=== PATIENT | female | born 1990 | race American Indian/Alaskan Native ===

== ENCOUNTER 2019-03-13 21:29 | Emergency (ER) | payer OTHER ==
[2019-03-13 22:00] LABS: Basophils % (Auto) 0.5 % (0.0-1.8); Eosinophils # (Auto) 0.2 K/mm3 (0.0-0.4); Eosinophils % (Auto) 1.9 % (0.0-4.3); Hematocrit 43.1 % (30.3-42.9); Hemoglobin 14.6 gm/dl (10.1-14.3); Lymphocytes # (Auto) 1.6 K/mm3 (1.2-5.4); Lymphocytes % (Auto) 15.5 % (13.4-35.0); Mean Corpuscular HGB Conc 34 % (30-34); Mean Corpuscular Volume 89 fl (79-97); Monocytes # (Auto) 0.7 K/mm3 (0.0-0.8); Monocytes % (Auto) 6.4 % (0.0-7.3); Platelet Count 278 K/mm3 (140-440); Red Blood Count 4.83 M/mm3 (3.65-5.03); Red Cell Distribution Width 13.2 % (13.2-15.2)
[2019-03-13 22:22] LABS: Alanine Aminotransferase 8 units/L (7-56); Albumin 4.8 g/dL (3.9-5); BUN/Creatinine Ratio 13; Blood Urea Nitrogen 9 mg/dL (7-17); Calcium 9.8 mg/dL (8.4-10.2); Hemolysis Index 8
[2019-03-13 22:51] LABS: Bilirubin,Urine NEG (Negative); Blood,Urine NEG (Negative); Color,Urine Amber (Yellow); Mucus,Urine 3+ /HPF; Urobilinogen,Urine < 2.0 mg/dL (<2.0)
[2019-03-13 22:53] LABS: Amphetamine Screen,Urine PRESUMPTIVE NEGATIVE; Benzodiazepines Screen,Urine PRESUMPTIVE NEGATIVE; Cocaine Screen,Urine PRESUMPTIVE NEGATIVE; Methadone Screen,Urine PRESUMPTIVE NEGATIVE; Opiate Screen,Urine PRESUMPTIVE NEGATIVE
[2019-03-13 23:22] LABS: Cannabinoid Screen,Urine PRESUMPTIVE POSITIVE
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
--- NOTE | 2019-03-14 13:21 | Consultation ---
History of Present Illness - Reason for Consult Consult date: 03/14/19 Reason for consult: Mental Health Evaluation Requesting physician: MARY LYNNE - Chief Complaint Chief complaint: "I took the pills to kill myself" - History of Present Psychiatric Illness 28 y.o. AA female who presented to the ER for overdosing on several Gabapentin pills. Today the patient was emotional during the assessment She stated that she intentional took the pills to kill herself. She stated that she is having issues with her mother and boyfriend. Also, she had a miscarriage and her grandmother recently . She stated that she wanted everything to go away yesterday, so she decided to take the pills. She acknowledged a previous suicide attempt in the past by overdosing. She stated that she was placed at a mental health facility because of her actions. She continue to endorse SI's. She denies HIs' and AVH's. She denies erratic sleep and a poor appetite. She denies alcohol consumption (etoh), but acknowledge marijuana use. Medications and Allergies Allergies Allergy/AdvReac Type Severity Reaction Status Date / Time tomato Allergy Unknown Verified 03/13/19 22:38 Home Medications Medication Instructions Recorded Confirmed Last Taken Type No Known Home Medications [No 03/14/19 03/14/19 Unknown History Reported Home Medications] Past psychiatric history - Past Medical History Past Medical History: other (Recent miscarriage ) Past Surgical History: No surgical history - past Psychiatric treatment and history psychiatric treatment history: Several inpatient psy settings in the past. Denies a fam psy hx. - Social History Social history: lives with family Mental Status Exam - Vital signs Last Vital Signs Temp 99.1 F 03/14/19 10:09 Pulse 87 03/14/19 10:09 Resp 18 03/14/19 10:09 BP 115/64 03/14/19 10:09 Pulse Ox 100 03/14/19 10:09 - Exam Narrative exam: MSE: Appearance: in hospital attire Behavior: regular eye contact Speech: regular rate and tone Mood: emotional Affect: congruent to mood Thought Process: circumstantial Thought Content: denies HI's and AVH's Motor Activity: sitting up in bed Cognition: A/O x3 Insight: fair Judgment: poor Results Result Diagrams: 03/13/19 21:48 03/13/19 21:48 Abnormal lab results 03/13/19 03/13/1903/13/19 Range/Units 21:48 21:48 21:48 Hgb 14.6 H (10.1-14.3) gm/dl Hct 43.1 H (30.3-42.9) % Seg Neutrophils % 75.7 H (40.0-70.0) % Seg Neutrophils # 8.0 H (1.8-7.7) K/mm3 HCG, Quant (0-4) mIU/mL Salicylates < 0.3 L (2.8-20.0) mg/dL Acetaminophen < 5.0 L (10.0-30.0) ug/mL 03/13/19 Range/Units 22:38 Hgb (10.1-14.3) gm/dl Hct (30.3-42.9) % Seg Neutrophils % (40.0-70.0) % Seg Neutrophils # (1.8-7.7) K/mm3 HCG, Quant 20.55 H (0-4) mIU/mL Salicylates (2.8-20.0) mg/dL Acetaminophen (10.0-30.0) ug/mL All other labs normal. Assessment and Plan Assessment and plan: Impression: MDD, Severe Type. Cannabis Use DO. Intentional overdose. Today the patient was emotional during the assessment. The patient is impulsive. DDx: Substance Induced Mood DO Recommendation/Plan: Continue 1013. Discussed risks/benefits of SSRI's with the patient, she prefer talk therapy at this time. Dispo: The patient was referred to inpatient psy services. Will staff with Dr Letty Bashir.
--- NOTE | 2019-03-15 11:13 | Progress Note ---
Subjective - Reason for Consult Consult date: 03/15/19 Reason for consult: Psychiatric Follow-up Evaluation - Chief Complaint Chief complaint: "I'm good." Patient is a 28 y.o. AA female who presented to the ER for overdosing on several Gabapentin pills. Today the patient is calm and cooperative during the assessment. She reports excessive sleep and appetite fluctuations. Patient verbalizes multiple stressors. She continues to endorses depressed mood and anxiety. She rates her depression 7/10, with 10 being the worse. She denies SI/HI's, A/VH's, and delusions. Mental Status Exam - Vital signs Last Vital Signs Temp 98 F 03/15/19 08:05 Pulse 89 03/15/19 08:05 Resp 18 03/15/19 08:05 BP 118/72 03/15/19 08:05 Pulse Ox 99 03/15/19 08:05 - Exam Narrative exam: Mental Status Exam Appearance: in hospital attire Behavior: regular eye contact Speech: regular rate and tone Mood: " I'm good"; depressed and anxious Affect: congruent to mood Thought Process: circumstantial Thought Content: denies HI's and AVH's Motor Activity: sitting up in bed Cognition: A/O x 3 Insight: fair Judgment: poor Assessment and Plan Impression: MDD, Severe Type. Cannabis Use DO. Intentional overdose. Today the patient is calm and cooperative during the assessment. She continues to be impulsive. She denies SI/HI's, A/VH's, and delusions. DDx: Substance Induced Mood DO Recommendation/Plan: 1. Continue 1013. 2. Discussed risks/benefits of SSRI's with the patient, she prefer talk therapy at this time. Disposition: The patient was referred to inpatient psychiatric services. Will staff with Dr. Letty Bashir.
--- NOTE | 2019-03-16 11:33 | Progress Note ---
Subjective - Reason for Consult Consult date: 03/16/19 Reason for consult: Psychiatry Follow-up - Chief Complaint Chief complaint: "I'm doing better" Patient is a 28 y.o. AA female who presented to the ER for overdosing on several Gabapentin pills. Today the patient is calm and cooperative during the assessment. She stated that she spoke with her family reference receiving counseling together. She stated, "everyone is on the same page." She denies SI/HI's and AVH's. Mental Status Exam - Vital signs Last Vital Signs Temp 98.4 F 03/16/19 08:43 Pulse 97 H 03/16/19 08:43 Resp 16 03/16/19 07:53 BP 130/84 03/16/19 08:43 Pulse Ox 98 03/16/19 08:43 - Exam Narrative exam: MSE: Appearance: calm, cooperative Behavior: regular eye contact Speech: regular rate and tone Mood: "better" Affect: congruent to mood Thought Process: logical Thought Content: denies SI/HI's and AVH's Motor Activity: sitting up in bed Cognition: A/O x3 Insight: fair Judgment: variable to fair Assessment and Plan Impression: MDD, Severe Type. Cannabis Use DO. Intentional overdose. Today the patient was emotional during the assessment. HCg trending upward. DDx: Substance Induced Mood DO Recommendation/Plan: Reevaluate the patient's 1013 in 24 hours. Discussed risks/benefits of SSRI's with the patient, she prefer talk therapy at this time. Dispo: If the patient's 1013 is rescinded in 24 hours, she can follow up with [facility] for outpatient psy services. Staffed with Dr Letty Bashir.
--- NOTE | 2019-03-16 19:07 | Ultrasound Report ---
OB ultrasound FINDINGS: Uterus measures 7.7 x 4.9 x 3.9 cm and is empty. Endometrial stripe is normal at 1.3 cm. Th e left ovary measures 2.5 x 1.9 x 1.6 cm and is normal. Right ovary measures 4.9 x 4.8 x 3 7 cm and c ontains a 3.2 and 1.2 cm simple appearing cyst. No hemorrhage or free fluid. There is no ectopic preg naomy seen. IMPRESSION: Right ovarian cysts. No ectopic or IUP seen Signer Name: John Taylor MD Signed: 03/16/2019 7:03 PM Workstation Name: [id number]
[2019-03-17 14:02] VITALS: BP 127/68
--- NOTE | 2019-03-17 14:31 | Progress Note ---
Subjective - Reason for Consult Consult date: 03/17/19 Reason for consult: Psychiatry Follow-up - Chief Complaint Chief complaint: "I will do this again" Patient is a 28 y.o. AA female who presented to the ER for overdosing on several Gabapentin pills. Today the patient is calm and cooperative during the assessment. Per collateral information from the patient's mother Beth Chaidez at [phone], she stated that she have been in communication with the patient since her ER arrival. She stated that she is the patient's support system once the patient is discharged. The patient denies SI/HI's and AVH's. The patient have been pleasant since her arrival to the ER. Mental Status Exam - Vital signs Last Vital Signs Temp 98.7 F 03/17/19 13:00 Pulse 92 H 03/17/19 13:00 Resp 18 03/17/19 13:00 BP 127/68 03/17/19 13:00 Pulse Ox 100 03/17/19 13:00 - Exam Narrative exam: MSE: Appearance: calm, cooperative Behavior: regular eye contact Speech: regular rate and tone Mood: "better" Affect: congruent to mood Thought Process: logical Thought Content: denies SI/HI's and AVH's Motor Activity: sitting up in bed Cognition: A/O x3 Insight: appropriate Judgment: appropriate Assessment and Plan Impression: MDD, Severe Type. Cannabis Use DO. Today the patient was emotional during the assessment. The patient is no threat to self. DDx: Substance Induced Mood DO Suicide Risk Assessment I. This screening and assessment is based on information collected from the following sources: II. SUICIDE RISK SCREENING (within last 30 days): A.) Suicidal thoughts/behaviors: Yes SUICIDE RISK ASSESSMENT III. FACTORS THAT INCREASE RISK: A.) Demographic and Substance Use Factors: Yes (Marijuana) B.) Current/Recent Factors (within past 3 months): Psychosocial/Environmental Factors: Life Stressors Physical Illness: None Cognitive/Psychological Factors: None C.) Historical Factors: None D.) Diagnostic/Symptom/Treatment Factors: None E.) Acute Risk Factor Severity (DESC; MILD/MOD/SEVERE): Mild Other factors for this individual that increase risk: None IV. FACTORS THAT DECREASE RISK: Resilience/Protective Factors: Patient want to decrease her family issues Other factors for this individual that decrease risk: Patient denies a desire to harm self V. Clinician's Formulation of Risk and Determination of level of Care: This is a 28 y.o. AA female who ingested several Gapapentin pills to kill herself. She acknowledged that she should have not ingested the pills when asked. She is adamant that her actions were not safe. She stated that she will follow-up with outpatient psy services once discharged. Since being hospitalized the patient has consistently denied the desire to harm herself. Additionally, she has become insightful about how to better address her current issues. The patient is not impaired by substance. She is able to take care of her ADLs and is not at imminent risk of harm to self or others. Consequently, it is the opinion of the treatment team that the patient is at low risk of suicide and does not meet criteria to continue an involuntary psychiatric hold. Estimation of Imminent Risk: Low due to the above explanation. Determination of Level of Care based on Suicide Risk: Outpatient follow-up. Narrative description of clinical reasoning. Given the fact that the patient is willing to engage in outpatient psy services care and has a supportive network (her mother Beth Chaidez), it is reasonable to expect that the patient will seek services. At this current time, she is not impulsive and does not have any risk factors to increase the likelihood of her impulsive behavior. Therefore, it is reasonable to expect that the patient will engage in outpatient/rehab services which will reduce further unsafe behaviors. . Plan and Interventions based on Suicide Risk: This patient will likely be stepped down to an outpatient mental health center in the community upon discharge and follow-up within 7 days of her discharge from the hospital. VII. Discharge/After Hours Support Plan: Patient can return back to the ER, call 911 or crisis line if symptoms of depression, anxiety, suicidality return. Recommendation/Plan: Rescind 1013. Discussed risks/benefits of SSRI's with the patient, she prefer talk therapy at this time. Discussed the importance to abstain from recreational drug use, she verbalized understanding. Dispo: The patient can follow up with [facility] for outpatient psy services. Staffed with Dr Letty Bashir.
== END 2019-03-17 17:24 | disposition home or self-care (01) ==
LOC: ED 21:29 → EEVIPCON 21:29 → ED 03-17 17:24
DX: T14.91XA Suicide attempt, initial encounter (principal); T42.6X2A Poisoning by other antiepileptic and sedative-hypnotic drugs, intentional self-harm, initial encounter; F31.9 Bipolar disorder, unspecified; F41.9 Anxiety disorder, unspecified; Z91.018 Allergy to other foods; Y93.89 Activity, other specified; Y92.89 Other specified places as the place of occurrence of the external cause; Y99.8 Other external cause status
CPT/HCPCS: 36415; 76801; 76817; 80053; 80307; 80320; 81001; 84702; 85025; 93005; 93010; G0480